=== PATIENT | male | born 1960 | race Caucasian/White ===

== ENCOUNTER 2021-08-31 20:05 | Emergency (ER) | payer MEDICAID ==
[~2021-08-31] VITALS: Ht 170.2 cm; Wt 81.8 kg
[2021-08-31 20:09] VITALS: BP 143/92
[2021-08-31] MEDS ORDERED: METF-911 PO (20:17)
[2021-08-31] MEDS ORDERED: METF-1211 PO (20:20)
[2021-08-31] MEDS ORDERED: IBUPROFEN 600 MG TABLET PO ONE (20:45)
== END 2021-08-31 21:10 | disposition home or self-care (01) ==
LOC: EMS 20:09
DX: M79.675 Pain in left toe(s) (principal); M79.89 Other specified soft tissue disorders; E11.9 Type 2 diabetes mellitus without complications; E78.00 Pure hypercholesterolemia, unspecified; Z79.84 Long term (current) use of oral hypoglycemic drugs
CPT/HCPCS: 82962; 99282